=== PATIENT | female | born 1995 | race African-American/Black ===

== ENCOUNTER 2023-10-01 12:07 | Emergency (ER) | payer OTHER ==
[2023-10-01] MEDS ORDERED: IBUPROFEN 600 MG TABLET (FP) PO ONE ×2 (12:44→12:51)
== END 2023-10-01 13:13 | disposition home or self-care (01) ==
LOC: FER 12:07
DX: M54.2 Cervicalgia (principal); M25.512 Pain in left shoulder; S16.1XXA Strain of muscle, fascia and tendon at neck level, initial encounter; V49.50XA Passenger injured in collision with unspecified motor vehicles in traffic accident, initial encounter; Y92.410 Unspecified street and highway as the place of occurrence of the external cause
CPT/HCPCS: 99283-25